=== PATIENT | female | born 1950 | race African-American/Black ===

== ENCOUNTER 2017-01-17 09:00 | Outpatient (RCR) | payer OTHER | END 2017-01-24 | disposition home or self-care (01) | LOC: PTY 09:00 | DX: M17.0 Bilateral primary osteoarthritis of knee (principal) | CPT/HCPCS: 97110; 97162; G0283 ==

== ENCOUNTER 2017-01-27 08:20 | Outpatient (RCR) | payer OTHER | END 2017-02-23 | disposition home or self-care (01) | LOC: PTY 08:20 | DX: M17.0 Bilateral primary osteoarthritis of knee (principal) | CPT/HCPCS: 97110; G0283 ==

== ENCOUNTER 2017-02-24 08:20 | Outpatient (RCR) | payer OTHER | END 2017-03-26 | disposition home or self-care (01) | LOC: PTY 08:20 | DX: M17.0 Bilateral primary osteoarthritis of knee (principal) | CPT/HCPCS: 97110; G0283 ==